=== PATIENT | male | born 1965 | race Caucasian/White ===

== ENCOUNTER 2019-05-30 08:31 | Outpatient (CLI) | payer BC | END 2019-05-30 23:59 | disposition home or self-care (01) | LOC: CARD 08:31 | PROVIDERS: ATTEND Family Medicine | DX: I49.3 Ventricular premature depolarization (principal); I10 Essential (primary) hypertension | CPT/HCPCS: 93017; 93350 ==

== ENCOUNTER → 2019-12-20 | Outpatient (CLI) | payer BC | END | disposition home or self-care (01) | LOC: RAD 07:24 | PROVIDERS: ATTEND Orthopaedic Surgery | DX: M75.101 Unspecified rotator cuff tear or rupture of right shoulder, not specified as traumatic (principal); M19.011 Primary osteoarthritis, right shoulder; J32.9 Chronic sinusitis, unspecified; J34.89 Other specified disorders of nose and nasal sinuses; M85.68 Other cyst of bone, other site; M75.51 Bursitis of right shoulder | CPT/HCPCS: 70551; 76700; 93880 ==

== ENCOUNTER → 2020-10-22 | Outpatient (CLI) | payer BC | END | disposition home or self-care (01) | LOC: RAD 13:06 | PROVIDERS: ATTEND Family Medicine | DX: R10.84 Generalized abdominal pain (principal); M51.36 Other intervertebral disc degeneration, lumbar region | CPT/HCPCS: 74150 ==